=== PATIENT | male | born 1965 | race Caucasian/White ===

== ENCOUNTER 2021-11-26 16:19 | Inpatient (IN) | payer BC ==
[~2021-11-26] VITALS: Ht 172.7 cm; Wt 69.4 kg
[2021-11-26 16:25] VITALS: BP 173/95
[2021-11-26] MEDS ORDERED: DICYCLOMINE HCL LIQUID 20 MG, ALUMINUM HYD/MAG/SIMETHICONE 30 ML, LIDOCAINE VISCOUS 2% ... PO ONE ×6 (16:55→18:10)
--- NOTE | 2021-11-26 17:02 | NUR ---
ATTEMPTED TO CALL PATIENT AND NO ANSWER AT THIS TIME
--- NOTE | 2021-11-26 17:29 | NUR ---
ATTEMPTED TO CALL PATIENT AND ANSWER
--- NOTE | 2021-11-26 18:06 | NUR ---
XRAY AT BEDSIDE
[2021-11-26] MEDS ORDERED: ALUMINUM HYD/MAG/SIMETHICONE 30 ML UDC ONE (18:09)
[2021-11-26] MEDS ORDERED: DICYCLOMINE HCL LIQUID 10 MG/5 ML UDC ONE (18:09)
--- NOTE | 2021-11-26 18:16 | NUR ---
pt provided with blanket
[2021-11-26 18:38] LABS: EOSINOPHILS # (AUTO) 0.1 K/uL (0-0.4); EOSINOPHILS % (AUTO) 1.1 % (0.0-4.0); HEMATOCRIT 41.4 % (36-52); HEMOGLOBIN 14.1 g/dL (12.0-18.0); LYMPHOCYTES # (AUTO) 1.9 K/uL (2.0-11.5); LYMPHOCYTES % (AUTO) 25.5 % (20.5-51.1); MEAN CORPUSCULAR HEMOGLOBIN 33 pg (27-31); MEAN CORPUSCULAR HGB CONC 34 g/dL (33-37); MEAN CORPUSCULAR VOLUME 97.2 fL (80-94); MONOCYTES # (AUTO) 0.7 K/uL (0.8-1.0); MONOCYTES % (AUTO) 9.4 % (1.7-9.3); NEUTROPHILS # (AUTO) 4.7 K/uL (1.8-7.7); PLATELET COUNT (AUTO) 273 K/uL (140-450); RED BLOOD CELL COUNT(AUTO) 4.26 MIL/uL (4.20-6.10); RED CELL DISTRIBUTION WIDTH 13.4 % (11.6-13.7); WHITE BLOOD COUNT (AUTO) 7.4 K/uL (4.8-10.8)
--- NOTE | 2021-11-26 18:52 | NUR ---
55/M PRESENTS TO ED WITH C/O INTERMITTENT 6/10 EPIGRASTRIC "BURNING" X1 WEEK, STATING PAIN WORSENS AFTER MEALS. PATIENT REPORTS BEING SEEN FOR SIMILAR SYMPTOMS AND GIVEN RX BUT STATES ONLY PROVIDED MILD RELIEF. PATIENT DENIES N/V/D, CP OR SOB.
[2021-11-26 18:58] LABS: ANION GAP 13.6 (8-16); CARBON DIOXIDE 25.2 mmol/L (21-32); CHLORIDE 103 mmol/L (98-107); POTASSIUM 3.8 mmol/L (3.5-5.1); SODIUM SERUM 138 mmol/L (136-145)
[2021-11-26 18:59] LABS: ASPARTATE AMINOTRANSFERASE 21 U/L (15-37); CREATININE 1.2 mg/dL (0.6-1.3); GFR ARICAN-AMERICAN 81 mL/min (>90); GLUCOSE 122 mg/dL (74-106); TOTAL BILIRUBIN 0.5 mg/dL (0.0-1.0); UREA NITROGEN, BLOOD 16 mg/dL (7-18)
[2021-11-26 19:00] LABS: ALBUMIN 3.8 g/dL (3.4-5.0)
[2021-11-26] MEDS ORDERED: ASPIRIN 325 MG TAB PO ONE (19:05)
--- NOTE | 2021-11-26 19:15 | NUR ---
GAYATRI SWAB COLLECTED AND WALKED TO LAB
--- NOTE | 2021-11-26 19:24 | NUR ---
Pt report given to EVELINA DOMINIQUE. Transfer of care at this time.
[2021-11-26] MEDS ORDERED: MAGNESIUM OXIDE 400 MG TAB PO PRN (20:05)
[2021-11-26] MEDS ORDERED: POTASSIUM CHLORIDE 10 MEQ TABER PO PRN (20:05)
[2021-11-26] MEDS ORDERED: HYDROcodone/APAP 5/325 MG 1 TAB TAB PO PRN (20:05)
[2021-11-26] MEDS ORDERED: MORPHINE SULFATE 4 MG/ML SYR IVP PRN (20:05)
[2021-11-26] MEDS ORDERED: ACETAMINOPHEN 325 MG TAB PO PRN (20:05)
[2021-11-26] MEDS ORDERED: ONDANSETRON 4 MG/2 ML VIAL IVP PRN (20:05)
--- NOTE | 2021-11-26 20:25 | NUR ---
CALLED CM MADDEN AND NAS CORTEZ TO CALL BACK TO ASK FOR SLEEPING AID
[2021-11-26] MEDS ORDERED: MELATONIN 3 MG TAB PO PRN (20:40)
[2021-11-26] MEDS ORDERED: MELATONIN 3 MG TAB ONE (20:48)
[2021-11-26] MEDS: NACL 0.9% 1,000 ML IV SCH (21:04)
--- NOTE | 2021-11-26 21:43 | NUR ---
PER LAB PT'S TROPONIN IS TRENDING UP - INFORM YONAS RIVAS ABOUT THIS - I TOLD HER SHE HAVE TO CALL THIS TO DR. BARFIELD ( DR ELECTRICAL SERVICE TECHNICIAN ) ROB BRANHAM VERBALIZES UNDERSTANDING .
--- NOTE | 2021-11-26 21:49 | NUR ---
Patient will be admitted to care of DR. BARFIELD . Admited to TELE. Will go [id number] . Belongings list completed. Report to YONAS.
[2021-11-26 21:55] VITALS: BP 144/74
--- NOTE | 2021-11-26 22:40 | NUR ---
PAGE JUAN JOSE WALKER REGARDING PT TROPONIN LEVEL TRENDING UP, DR. BARFIELD ORDER HEPARIN DRIP PER PHARMACY. PT/PTT/INR ORDERED.
[2021-11-26] MEDS ORDERED: HEPARIN PER PHARMACY MC PRN (22:45)
[2021-11-26] MEDS ORDERED: hydrALAZINE 20 MG/ML VIAL IVP PRN ×2 (22:55→23:15)
--- NOTE | 2021-11-26 22:55 | NUR ---
MANAGER OF WAREHOUSE, DR. MELISSA AGREE WITH DR. BARFIELD ORDER OF HEPARIN DRIP.
[2021-11-27] MEDS ORDERED: hePARIN / DEXT 5% PREMIX 250 ML IV ONE (02:50)
[2021-11-27] MEDS: hePARIN / DEXT 5% PREMIX 250 ML IV SCH (03:15)
[2021-11-27 04:00] VITALS: BP 120/72
[2021-11-27 05:36] LABS: BASOPHILS % (AUTO) 0.4 % (0.0-2.0); EOSINOPHILS # (AUTO) 0.1 K/uL (0-0.4); EOSINOPHILS % (AUTO) 1.8 % (0.0-4.0); HEMATOCRIT 40.7 % (36-52); HEMOGLOBIN 13.8 g/dL (12.0-18.0); LYMPHOCYTES # (AUTO) 2.5 K/uL (2.0-11.5); LYMPHOCYTES % (AUTO) 33.8 % (20.5-51.1); MEAN CORPUSCULAR HEMOGLOBIN 33 pg (27-31); MEAN CORPUSCULAR HGB CONC 34 g/dL (33-37); MEAN CORPUSCULAR VOLUME 97.4 fL (80-94); MONOCYTES # (AUTO) 0.7 K/uL (0.8-1.0); MONOCYTES % (AUTO) 9.2 % (1.7-9.3); NEUTROPHILS # (AUTO) 4.1 K/uL (1.8-7.7); NEUTROPHILS % (AUTO) 54.8 % (42.2-75.2); PLATELET COUNT (AUTO) 266 K/uL (140-450); RED BLOOD CELL COUNT(AUTO) 4.18 MIL/uL (4.20-6.10); RED CELL DISTRIBUTION WIDTH 13.2 % (11.6-13.7); WHITE BLOOD COUNT (AUTO) 7.5 K/uL (4.8-10.8)
[2021-11-27 05:38] LABS: ANION GAP 12.4 (8-16); CARBON DIOXIDE 25.3 mmol/L (21-32); CREATININE 1.2 mg/dL (0.6-1.3); POTASSIUM 3.7 mmol/L (3.5-5.1)
[2021-11-27 08:00] VITALS: BP 153/83
--- NOTE | 2021-11-27 08:00 | NUR ---
RECEIVED REPORT FROM CHANGE MANAGEMENT ANALYST NURSE. PT IS SLEEPING, NOT IN DISTRESS AT THIS TIME. IV SITE ON RIGHT HAND, 20G. AND L AC 20G WITH HEPARIN DRIP. DISCUSSED PLAN OF CARE. WILL CONTINUE TO MONITOR.
[2021-11-27] MEDS: NACL 0.9% 1,000 ML IV SCH ×3 (08:35→21:05)
[2021-11-27] MEDS ORDERED: hydrALAZINE 25 MG TAB PO PRN (08:40)
--- NOTE | 2021-11-27 08:40 | NUR ---
DID NOT START IV NACL 1000ML BAG, OTHER IV BAG STILL INFUSING.
--- NOTE | 2021-11-27 08:51 | NUR ---
RETURNED CARVEDILOL 12.5MG TO THE MEDICINE BOX, CHANGED THE DOSAGE TO 6.25MG.
[2021-11-27] MEDS ORDERED: carvediloL 12.5 MG TAB PO SCH (09:00)
[2021-11-27] MEDS: carvediloL 6.25 MG TAB PO SCH (09:02)
[2021-11-27] MEDS: ECOTRIN 81 MG TABEC PO SCH (09:02)
[2021-11-27] MEDS: ATORVASTATIN 80 MG TAB PO SCH (09:03)
[2021-11-27] MEDS: lisinopriL 10 MG TAB PO SCH ×2 (09:03→21:00)
--- NOTE | 2021-11-27 09:03 | NUR ---
DC PLANNIN YRS OLD MALE PATIENT WAS ADMITTED FROM HOME WITH A DX OF NSTEMI. PATIENT HAS A HX OF HTN AND HLD. CXR SHOWED NO ACUTE CARDIOPULMONARY DISEASE. RAPID COVID TEST NEGATIVE. ADMINISTERED IVF, AND ACS PROTOCOL AND CONTINUED HOME MEDS. SEEN BY COMMERCIAL COLLECTOR DR MELISSA, NEW ORDER TO TRANSFER TO HIGHER LEVEL OF CARE FOR CARDIAC CATHETERIZATION. FAXED TO [facility] [phone] AND [facility] [phone] . CM TO FOLLOW Addendum: 11/27/21 at 1458 by Ally Veloz RN DC PLANNING: CALLED ANITA VARGAS SPOKE WITH DEMETRIS SILVA [facility] IS DELEGATED FOR THE TRANSFER. CALLED [facility] ([facility]) [phone] SPOKE WITH CHIKA LIRIANO STATED PATIENT'S PCP WAS IN [place], AND IS DELEGATED. DEANDRA SPOKE WITH PATIENT AND PATIENT STATED HE NEVER SEEN A PATIENT IN [place] ,HE ALWAYS SEEN DR AT [place] OFFICE. I EXPLAIN TO CHIKA PT'S PCP IS IN [place] DR DAJA BANKS, PER CHIKA WILL E MAIL THE TRANSFER TEAM AND WILL CALL BACK. CM TO FOLLOW Addendum: 11/28/21 at 0914 by Ally Veloz RN DC PLANNING: GIANA PRICE SPOKE WITH CHIKA LIRIANO STATED [facility] ACCEPTED PATIENT UNDER THE CARE OF DR HUTCHISON COMMERCIAL COLLECTOR ,BUT NO BED AVAILABLE. PER CHIKA ANDRE TO FAX TO [place]. FAXED THE REQUEST TO [facility] TO FOLLOW Addendum: 11/28/21 at 1050 by Ally Veloz RN DC PLANNING: RECEIVED A CALL FROM WOLF AT [facility] MIGUEL STATED, LOOKING FOR AN ACCEPTING COMMERCIAL COLLECTOR AND WORKING WITH AT THE SAME TIME AWAITING FOR CONTRACTED FACILITY, CALLED [facility] SU[facility] SPOKE WITH MICHEAL STATED NO BED AVAILABLE 21 PATIENT IS WAITING FOR TELE BED,HOWEVER WILL CALL BACK WHEN BED AVAILABLE. DEANDRA TO FOLLOW Addendum: 11/28/21 at 1451 by Ally Veloz RN DC PLANNING: CALLED QUIN MCMANUS SPOKE WITH YOGI RIVERA STILL NO BED AVAILABLE. CALLED [facility]P STATED IF THERE IS ACCEPTING DR THEY WILL TAKE PATIENT. CALLED DR JOHNSON AND ASKED HIM IF HE IS CONTRACTED WITH [facility] TO ACCEPT PATIENT AT [facility]. CALLED [facility] SPOKE WITH CHIKA [phone] INFORMED HER THAT NO CONTRACTED FACILITY ARE CALLING HOWEVER [facility] IS ACCEPTING PATIENT AND DR MONCADA WILL BE THE COMMERCIAL COLLECTOR. . CHIKA PROVIDED THE AUTH# [id number]. PROVIDE THE AUTH TO [facility] MIGUEL BLOOM. DC PLAN AWAITING FOR BED C, TO FOLLOW Addendum: 11/28/21 at 1749 by Ally Veloz RN DC PLANING: RECEIVED A CALL FROM [facility] SUPERVISOR SPOKE WITH WOLF, ST[facility] GIVE [facility] [phone] ARRANGED TRANSPORT WITH [facility] BODY CLEANER TIME 7 PM. CALLED CELINA JADE HR CM AT [facility] [phone] SHE PROVIDED THE AUTH # [id number]. NOTIFIED LOS CHARGE NURSE RN.
--- NOTE | 2021-11-27 10:05 | NUR ---
RECEIVED A CALL FROM CHIP MUÑOZ, PT PTT IS AT 37.2.
--- NOTE | 2021-11-27 11:40 | NUR ---
PT PTT IS 37.2, GAVE 2100UNITS OF HEPRAIN BOLUS, TITRATED HEPARIN DRIP TO 10 ML/HR, PER DR'S ORDER.
[2021-11-27 12:00] VITALS: BP 156/82
--- NOTE | 2021-11-27 12:00 | NUR ---
FOUND PT WITH IV LINE OUT ON HIS RIGHT HAND. PT SAID IT GOT PULLED OUT ACCIDENTALLY. BLEEDING WAS CONTROLLED, SAFETY MEASURES DONE.
--- NOTE | 2021-11-27 13:00 | NUR ---
INSERTED NEW IV LINE ON RIGHT FA, 22G, INFUSING WELL.
--- NOTE | 2021-11-27 14:00 | NUR ---
RALPH RIVAS, FROM [facility] CALLED, RELAYED PT. STATUS FOR TRANSFER.
--- NOTE | 2021-11-27 14:18 | NUR ---
DC PLANNING PATIENT IS A 55 YR OLD MALE ADMITTED ON 11/26/21 FOR NSTEMI. PATIENT HAS A HX OF HTN AND HLD. HERVE MET WITH PATIENT AT BEDSIDE FOR THE PURPOSE OF DISCUSSING AND GATHERING COLLATERAL INFORMATION. PATIENT REPORTS LIVING AT THE ADDRESS ON FILE ALONE. PATIENT REPORTED EMERGENCY CONTACT AND MEDICAL DECISION MAKER AT [facility] (FRIEND) [phone]. SW INQUIRED ON A.D, PATIENT DENIED HAVING A.D IN PLACE. SW PROVIDED PATIENT WITH INFORMATION ON A.D, PATIENT WAS RECEPTIVE HOWEVER, DECLINED A.D PACKET OFFERED BY HERVE. PATIENT REPORTS MEETING WITH PCP DR. DARREN CHENEY [phone], CONSISTENTLY AND REPORTS LAST VISIT A TELEPHONE VISIT, ON 12/19/21. PATIENT REPORTS BEING MEDICATION COMPLIANT AND DENIES BARRIERS IN ACQUIRING MEDICATION. PATIENT REPORTS RECEIVING MEDICATIONS FROM [facility] ON [address] IN THE [facility]. PATIENT REPORTS DME CANE. PATIENT REPORTS HAVING AN IHSS WORKER ALBINA RHOADES WHO PROVIDES CARE 4-6X/WEEK FOR 3-5HRS. PATIENT REPORTS ADEQUATE FRIEND AND FAMILY SUPPORT AND REPORTS THAT MS. RHOADES AND/OR MS. MAIER ASSIST IN AIDING IN CARE. PATIENT REPORTED BEING AWARE THAT HE IS BEING SCHEDULED FOR TRANSFER. PATIENT WAS REQUESTING FOLLOW ON TRANSFER. SW NOTIFIED PATIENT THAT CM WAS WORKING ON TRANSFER AND THAT HE WOULD BE NOTIFIED BY ELECTRICAL INSTRUMENT TECHNICIAN AND/OR MEDICAL TEAM. PATIENT WAS IN UNDERSTANDING. SW INQUIRED ON RESOURCES NEEDED, PATIENT DECLINED AT THIS TIME.
--- NOTE | 2021-11-27 15:17 | NUR ---
STARTED NEW IV NACL RUNNING AT 80ML/HR, INFUSING WELL.
[2021-11-27 16:00] VITALS: BP 140/89
--- NOTE | 2021-11-27 16:10 | NUR ---
PATIENT HAS BEEN SCREENED AND CATEGORIZED LOW NUTRITION RISK. PATIENT WILL BE SEEN WITHIN 7 DAYS OF ADMISSION. 12/03/[address]
--- NOTE | 2021-11-27 18:03 | NUR ---
RECEIVED A CALL FROM [employer]: PT APTT IS 59.
--- NOTE | 2021-11-27 18:13 | NUR ---
PT PTT IS STILL WITHIN NORMAL PARAMETERS, IV HEPARIN DRIP IS STILL 10ML/HR. WILL CONTINUE TO MONITOR.
--- NOTE | 2021-11-27 19:10 | NUR ---
GAVE REPORT TO FACETER NURSE, PT IS STABLE. DISCUSSED PLAN OF CARE.
--- NOTE | 2021-11-27 19:10 | NUR ---
RECEIVED REPORT FROM AM NURSE. PATIENT IS AAOX4 ON ROOM AIR. NO SOB NOTED. RESPIRATION REGULAR NON LABORED. ABLE TO COMMUNICATE WITH HIS NEEDS. NO COMPLAINTS OF PAIN. IVF OF NS INFUSING AT 80 ML/HR ON THE RFA. HEPARIN DRIP INFUSING AT 10 ML/HR ON THE LFA INFUSING WELL. SAFETY MEASURES IN PLACE. CALL LIGHT WITHIN REACH. WILL CONTINUE TO MONITOR.
[2021-11-27 20:00] VITALS: BP 153/85
--- NOTE | 2021-11-27 21:00 | NUR ---
SCHEDULED MEDICATION ADMINISTERED ORDERED.
--- NOTE | 2021-11-27 21:09 | NUR ---
RECEIVED A CALL REPORTING CRITICAL LAB RESULT TROPONIN, TEXTED DR. KATINA MELISSA AT 1510 ORDERED TO CONTINUE HEPARIN DRIP.
--- NOTE | 2021-11-27 23:50 | NUR ---
LAB CALLED ([facility]) REPORTED CRITICAL LAB VALUE PTT 57. HEPARIN DRIP NO CHANGE PER PROTOCOL.
[2021-11-28] VITALS: BP 155/80
--- NOTE | 2021-11-28 01:37 | NUR ---
PATIENT IS SLEEPING. OBSERVED CHEST RISE AND FALL. CALL LIGHT WITHIN REACH.
[2021-11-28 04:00] VITALS: BP 159/88
[2021-11-28] MEDS: hePARIN / DEXT 5% PREMIX 250 ML IV SCH (04:18)
[2021-11-28 05:18] LABS: BASOPHILS % (AUTO) 0.6 % (0.0-2.0); EOSINOPHILS # (AUTO) 0.3 K/uL (0-0.4); EOSINOPHILS % (AUTO) 3.4 % (0.0-4.0); HEMATOCRIT 41.5 % (36-52); LYMPHOCYTES # (AUTO) 3.7 K/uL (2.0-11.5); LYMPHOCYTES % (AUTO) 47.8 % (20.5-51.1); MEAN CORPUSCULAR HEMOGLOBIN 33 pg (27-31); MEAN CORPUSCULAR HGB CONC 34 g/dL (33-37); MEAN CORPUSCULAR VOLUME 98.1 fL (80-94); MONOCYTES # (AUTO) 0.7 K/uL (0.8-1.0); MONOCYTES % (AUTO) 9.5 % (1.7-9.3); NEUTROPHILS % (AUTO) 38.7 % (42.2-75.2); PLATELET COUNT (AUTO) 265 K/uL (140-450); RED BLOOD CELL COUNT(AUTO) 4.23 MIL/uL (4.20-6.10); RED CELL DISTRIBUTION WIDTH 13.2 % (11.6-13.7); WHITE BLOOD COUNT (AUTO) 7.8 K/uL (4.8-10.8)
[2021-11-28 05:40] LABS: ANION GAP 12.6 (8-16); CARBON DIOXIDE 24.2 mmol/L (21-32); CREATININE 1.2 mg/dL (0.6-1.3); POTASSIUM 3.8 mmol/L (3.5-5.1)
[2021-11-28 06:33] LABS: CHOL/HDL RATIO 4.6 (1-4.5)
--- NOTE | 2021-11-28 07:34 | NUR ---
BEDSIDE ENDORSEMENT GIVEN TO AM NURSE FOR CONTINUITY OF CARE. PATIENT IS STABLE.
--- NOTE | 2021-11-28 07:35 | NUR ---
RECEIVED PATIENT REPORT FROM RACETRACK STEWARD NURSE FOR CONTINUITY OF CARE. PT IS AOX4, ABLE TO MAKE NEEDS KNOWN. RESPIRATIONS EVEN AND LABORED. ON RA, O2SAT 96%. SKIN IS WARM, DRY, AND NON-INTACT. IV SITE ON LFA 22 G AND RFA 22G INTACT, PATENT, RUNNING NS AT 80CC/HR AND HEPARIN DRIP AT 1000 UNITS/HR. PLAN OF CARE DISCUSSED. SAFETY PRECAUTIONS IN PLACE. CALL LIGHT WITHIN REACH. WILL CONTINUE TO MONITOR.
[2021-11-28 08:00] VITALS: BP 153/91
[2021-11-28] MEDS: carvediloL 6.25 MG TAB PO SCH (08:23)
[2021-11-28] MEDS: ECOTRIN 81 MG TABEC PO SCH (08:23)
[2021-11-28] MEDS: ATORVASTATIN 80 MG TAB PO SCH (08:23)
[2021-11-28] MEDS: lisinopriL 10 MG TAB PO SCH (08:23)
[2021-11-28] MEDS: NACL 0.9% 1,000 ML IV SCH ×2 (08:24→20:10)
--- NOTE | 2021-11-28 09:05 | NUR ---
DUE MEDS GIVEN, TOLERATED WELL
--- NOTE | 2021-11-28 11:10 | NUR ---
DEANDRA THAYER AT BEDSIDE, SPOKE TO PT REGARDING PLAN OF CARE, PT VERBALIZED UNDERSTANDING
[2021-11-28 12:00] VITALS: BP 144/92
--- NOTE | 2021-11-28 14:00 | NUR ---
PT RESTING IN BED WITH C/O MILD CHEST PAIN, TYLENOL GIVEN ORDERED
[2021-11-28 16:00] VITALS: BP 137/84
--- NOTE | 2021-11-28 17:00 | NUR ---
PT RESTING IN BED, UPDATED ON PLAN OF CARE
[2021-11-28] MEDS ORDERED: LIP80 PO (18:10)
[2021-11-28] MEDS ORDERED: [UNRECOGNIZED DRUG - CODE] IV (18:10)
[2021-11-28] MEDS ORDERED: ASPI-1856 PO (18:10)
[2021-11-28] MEDS ORDERED: CARV6.252 PO (18:10)
[2021-11-28] MEDS ORDERED: LISI10TA30 PO (18:10)
--- NOTE | 2021-11-28 18:20 | NUR ---
REPORT GIVEN TO MAHAD RIVAS IN [facility] Addendum: 11/28/21 at 1914 by Lalit Mora RN PT AWARE AND AGREEABLE TO PLAN OF CARE
--- NOTE | 2021-11-28 19:30 | NUR ---
RECEIVED BEDSIDE REPORT FROM DAY SHIFT RN FOR CONTINUITY OF CARE. PT IS AWAKE IN BED. PT IS NOT IN ANY DISTRESS. BREATHING EVEN AND UNLABORED. IVF RUNNING PER MD ORDER. HEPARIN DRIP RUNNING PER MD ORDER. COMMUNICATION BOARD UPDATED. CALL LIGHT WITHIN REACH. ALL SAFETY MEASURES TAKEN. WILL CONTINUE TO MONITOR THE PT.
[2021-11-28 20:00] VITALS: BP 156/92
[2021-11-28] MEDS ORDERED: lisinopriL 10 MG TAB PO SCH (21:00)
--- NOTE | 2021-11-28 22:42 | NUR ---
[facility] IS HERE TO [employer] THE PT. PT IS LEAVING IN STABLE CONDITION. NOT IN ANY ACUTE DISTRESS. LEAVING VIA GURNEY.
== END 2021-11-28 22:50 | disposition short-term general hospital (02) | DRG 282 ==
LOC: MED 16:19 → MTU 20:05 → MMU 11-27 01:00
PROVIDERS: ADMIT Student in an Organized Health Care Education/Training Program; ATTEND Student in an Organized Health Care Education/Training Program
DX: I21.4 Non-ST elevation (NSTEMI) myocardial infarction (principal); E78.5 Hyperlipidemia, unspecified; I11.9 Hypertensive heart disease without heart failure; I35.1 Nonrheumatic aortic (valve) insufficiency; F17.290 Nicotine dependence, other tobacco product, uncomplicated; Z20.822 Contact with and (suspected) exposure to COVID-19; G89.29 Other chronic pain; Z82.49 Family history of ischemic heart disease and other diseases of the circulatory system; Z71.6 Tobacco abuse counseling; Z91.19 Patient's noncompliance with other medical treatment and regimen
CPT/HCPCS: 36415; 71045; 80048; 80053; 83036; 84484; 85025; 85610; 85730; 87081; 93005; 96374; 99285; J1644; J2405; Q0092